=== PATIENT | male | born 1970 | race Caucasian/White ===

== ENCOUNTER 2019-12-05 19:41 | Emergency (ER) | payer SELFPAY ==
[2019-12-05 19:49] VITALS: BP 165/94
[2019-12-05] MEDS ORDERED: KETOROLAC TROMETHAMINE 60 MG/2 ML SDV IM ONE (20:31)
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
== END 2019-12-06 08:02 | disposition home or self-care (01) ==
LOC: EDBD → ER 19:41
DX: S39.92XA Unspecified injury of lower back, initial encounter (principal); M54.5 Low back pain; X58.XXXA Exposure to other specified factors, initial encounter; F17.200 Nicotine dependence, unspecified, uncomplicated
CPT/HCPCS: 99283; 96372; J1885